=== PATIENT | male | born 1995 | race African-American/Black ===

== ENCOUNTER 2018-01-17 00:40 | Emergency (ER) | payer MEDICAID ==
[~2018-01-17] VITALS: Ht 172.7 cm; Wt 93.9 kg
[2018-01-17 00:45] VITALS: Ht 172.7 cm; Wt 93.9 kg
[2018-01-17 01:45] VITALS: BP 144/88
== END 2018-01-17 01:45 | disposition home or self-care (01) ==
LOC: ED 00:40
DX: J03.90 Acute tonsillitis, unspecified (principal); K59.00 Constipation, unspecified
CPT/HCPCS: J0561; J1100